=== PATIENT | male | born 1950 | race Caucasian/White ===

== ENCOUNTER → 2017-06-15 | Outpatient (CLI) | payer BC ==
[~2017-06-15] MED LIST: ASPI81CH; Hydrochloroth12.5 MG PO
== END ==
LOC: LAB SHORT 10:13 → PLD 10:13
DX: C44.529 Squamous cell carcinoma of skin of other part of trunk (principal)
CPT/HCPCS: 88305

== ENCOUNTER → 2017-10-27 | Outpatient (CLI) | payer BC | END | disposition home or self-care (01) | LOC: LAB SHORT 08:24 → PLD 08:24 | DX: C44.329 Squamous cell carcinoma of skin of other parts of face (principal) | CPT/HCPCS: 88305 ==

== ENCOUNTER → 2018-03-31 | Outpatient (CLI) | payer BC | LOC: LAB SHORT 10:26 → PLD 10:26 | DX: C44.222 Squamous cell carcinoma of skin of right ear and external auricular canal (principal); L82.1 Other seborrheic keratosis; L57.0 Actinic keratosis | CPT/HCPCS: 88305 ==

== ENCOUNTER → 2018-04-19 | Outpatient (CLI) | payer BC | END | disposition home or self-care (01) | LOC: PLD 07:49 → LAB SHORT 07:49 | DX: D04.21 Carcinoma in situ of skin of right ear and external auricular canal (principal); L57.0 Actinic keratosis | CPT/HCPCS: 88305 ==

== ENCOUNTER → 2018-07-28 | Outpatient (CLI) | payer BC | END | disposition home or self-care (01) | LOC: PLD 08:23 → LAB SHORT 08:23 | DX: L57.0 Actinic keratosis (principal) | CPT/HCPCS: 88305 ==

== ENCOUNTER → 2018-10-12 | Outpatient (CLI) | payer BC | END | disposition home or self-care (01) | LOC: PLD 11:15 → LAB SHORT 11:15 | DX: D48.5 Neoplasm of uncertain behavior of skin (principal) | CPT/HCPCS: 88305 ==

== ENCOUNTER → 2019-04-19 | Outpatient (CLI) | payer BC | END | disposition home or self-care (01) | LOC: LAB SHORT 15:33 → PLD 15:33 | DX: D22.5 Melanocytic nevi of trunk (principal) | CPT/HCPCS: 88305 ==

== ENCOUNTER 2020-01-28 16:06 | Emergency (ER) | payer BC ==
[~2020-01-28] VITALS: Ht 172.7 cm; Wt 79.4 kg
[2020-01-28 16:41] LABS: BASOPHILS ABSOLUTE AUTO 0.01 K/mm3 (0.00-0.23); BASOPHILS PERCENT AUTO 0 % (0-2); EOSINOPHILS ABSOLUTE AUTO 0.01 K/mm3 (0.00-0.68); EOSINOPHILS PERCENT AUTO 0 % (0-6); Hematocrit 45.6 % (37.0-53.0); Hemoglobin 16.4 g/dL (13.5-17.5); IMMATURE GRAN ABSOLUTE AUTO 0.01 K/mm3 (0.00-0.10); IMMATURE GRAN PERCENT AUTO 0 % (0-1); LYMPHOCYTES ABSOLUTE AUTO 1.03 K/mm3 (0.84-5.20); LYMPHOCYTES PERCENT AUTO 23 % (21-46); MONOCYTES ABSOLUTE AUTO 0.41 K/mm3 (0.16-1.47); MONOCYTES PERCENT AUTO 9 % (4-13); Mean Corpuscular HGB 32.2 pg (26.0-34.0); Mean Corpuscular Volume 89 fL (80-100); NEUTROPHILS PERCENT AUTO 68 % (41-73); Platelet Count 179 K/mm3 (150-400); RDW Coefficient Variation 11.9 % (11.7-14.2); RDW Standard Deviation 39.3 fL (35.1-46.3); White Blood Cell Count 4.57 K/mm3 (4.00-11.30)
[2020-01-28 16:49] LABS: Source, Urine Clean Catch
[2020-01-28 16:53] LABS: Appearance, Urine Clear (Clear); Bilirubin, Urine Neg (Neg); Blood, Urine 1+ (Neg); Color, Urine Yellow (P-Yellow); Glucose Qualitative, Urine Neg (Neg); Ketones, Urine 2+ (Neg); Leukocyte Esterase, Urine Neg (Neg); Nitrite, Urine Neg (Neg); Protein, Urine 2+ (Neg); Urobilinogen, Urine NORM (Normal)
[2020-01-28 16:58] LABS: Alanine Aminotransfer (ALT/SGP 26 U/L (12-78); Albumin, Blood 3.9 g/dL (3.4-5.0); Albumin/Globulin Ratio 0.9 (0.8-1.8); Alk Phos 64 U/L (50-136); Anion Gap 7 mmol/L (6-16); Aspartate Aminotrans (AST/SGOT 34 U/L (12-37); Bilirubin, Total 0.6 mg/dL (0.1-1.0); Blood Urea Nitrogen 16 mg/dL (8-24); Bun/Creatinine Ratio 15.2 (12.0-20.0); CO2, Blood 33 mmol/L (21-32); Calcium, Blood 8.5 mg/dL (8.5-10.1); Chloride, Blood 85 mmol/L (98-108); Creatinine, Blood 1.05 mg/dL (0.60-1.20); Globulin, Blood 4.4 g/dL (2.2-4.0); Glomerular Filtration Rate >60 (60-); Glucose, Blood 105 mg/dL (70-99); Potassium, Blood 3.1 mmol/L (3.5-5.5); Sodium, Blood 125 mmol/L (136-145); Total Protein, Blood 8.3 g/dL (6.4-8.2); Troponin I <0.015 ng/mL (0.000-0.040)
[2020-01-28 17:07] LABS: Bacteria Rare /hpf; Hyaline Casts Rare /lpf (0-2); Red Blood Cells, Urine 0-2 /hpf (0-2); Squamous Epithelial Cells Not Seen /hpf (Few); White Blood Cells, Urine 0-2 /hpf (0-5)
[2020-01-28] MEDS ORDERED: NAPR220 PO (19:15)
[2020-01-28] MEDS ORDERED: FISH OIL 1,2001 EAC7 PO (19:15)
== END 2020-01-28 22:16 | disposition home or self-care (01) ==
LOC: ER 16:06
PROVIDERS: Physician Assistant
DX: E86.0 Dehydration (principal); E87.1 Hypo-osmolality and hyponatremia; R19.7 Diarrhea, unspecified; Z79.899 Other long term (current) drug therapy
CPT/HCPCS: 36415; 71045; 80053; 81001; 83605; 84484; 85025; 93005; 93010; 96360; 99284-25; A9270; J7030

== ENCOUNTER → 2020-10-30 | Outpatient (CLI) | payer BC ==
[~2020-10-30] MED LIST changes: +FISH OIL 1,2001 EAC7 PO; +NAPR220 PO
== END | disposition home or self-care (01) ==
LOC: LAB 12:15 → LAB SHORT 12:15
DX: L57.0 Actinic keratosis (principal); D04.39 Carcinoma in situ of skin of other parts of face
CPT/HCPCS: 88305

== ENCOUNTER 2021-11-08 08:28 | Day surgery (SDC) | payer BC ==
[~2021-11-08] VITALS: Ht 172.7 cm; Wt 82.9 kg
[2021-11-08] MEDS ORDERED: B-12500 MC2 (09:06)
[2021-11-08] MEDS ORDERED: Aspir 8181 MG (09:06)
[2021-11-08] MEDS ORDERED: ATOR20 (09:06)
[2021-11-08] MEDS ORDERED: ERGO50000 (09:06)
[2021-11-08] MEDS ORDERED: LEVSOD25 (09:07)
[2021-11-08] MEDS ORDERED: LOSA25 (09:07)
[2021-11-08] MEDS ORDERED: ZINC220 (09:07)
== END 2021-11-08 10:30 | disposition home or self-care (01) ==
LOC: ORSCSDS 08:28
PROVIDERS: Surgery
PROC: 0DBK8ZX Excision of Ascending Colon, Via Natural or Artificial Opening Endoscopic, Diagnostic (ICD-10-PCS; principal; 2021-11-08 09:45)
DX: Z12.11 Encounter for screening for malignant neoplasm of colon (principal); Z86.010 Personal history of colon polyps; D12.2 Benign neoplasm of ascending colon; Z86.19 Personal history of other infectious and parasitic diseases; I10 Essential (primary) hypertension; E78.5 Hyperlipidemia, unspecified; Z86.16 Personal history of COVID-19; Z79.899 Other long term (current) drug therapy
CPT/HCPCS: 88305; J2704; J7120

== ENCOUNTER → 2022-04-29 | Outpatient (CLI) | payer BC ==
[~2022-04-29] MED LIST changes: +ATOR20; +Aspir 8181 MG; +B-12500 MC2; +ERGO50000; +LEVSOD25; +LOSA25; +ZINC220
== END ==
LOC: LAB SHORT 12:04 → PLD 12:04
DX: L57.0 Actinic keratosis (principal); L28.0 Lichen simplex chronicus
CPT/HCPCS: 88305

== ENCOUNTER → 2022-10-27 | Outpatient (CLI) | payer BC | END | disposition home or self-care (01) | LOC: LAB SHORT 12:29 → PLD 12:29 | DX: C44.111 Basal cell carcinoma of skin of unspecified eyelid, including canthus (principal) | CPT/HCPCS: 88305 ==

== ENCOUNTER → 2024-03-24 | Outpatient (CLI) | payer BC | LOC: LAB SHORT 07:13 → LAB 07:13 | DX: R59.0 Localized enlarged lymph nodes (principal) | CPT/HCPCS: 88173 ==

== ENCOUNTER → 2024-03-29 | Outpatient (CLI) | payer BC ==
[~2024-03-29] MED LIST changes: +FELODIPINE ER5 M2 PO; +LEVSOD25 PO
== END ==
LOC: LAB 07:50 → PLD 07:50 → LAB SHORT 07:50
DX: R59.0 Localized enlarged lymph nodes (principal)
CPT/HCPCS: 88184; 88185; 88305; 88323; 88341; 88342

== ENCOUNTER → 2024-04-12 | Outpatient (CLI) | payer BC | END | disposition home or self-care (01) | LOC: LAB SHORT 09:07 → LAB 09:07 | DX: C77.0 Secondary and unspecified malignant neoplasm of lymph nodes of head, face and neck (principal); C80.1 Malignant (primary) neoplasm, unspecified | CPT/HCPCS: 88184; 88185; 88305; 88323; 88341; 88342 ==

== ENCOUNTER 2024-04-22 06:14 | Day surgery (SDC) | payer BC ==
[~2024-04-22] VITALS: Ht 172.7 cm; Wt 82.6 kg
[~2024-04-22 06:14] MED LIST changes: -ATOR20; +ATOR20 PO; -FELODIPINE ER5 M2 PO; -LEVSOD25 PO
[2024-04-22] MEDS ORDERED: LEVSOD25 PO (06:39)
[2024-04-22] MEDS ORDERED: FELODIPINE ER5 M2 PO (06:41)
[2024-04-22] MEDS ORDERED: Lactated Ringer's 1,000 ML IV ONE ×2 (06:53→07:01)
[2024-04-22] MEDS ORDERED: FentaNYL Citrate 50 MCG/ML 2 ML Injection ONE (06:54)
[2024-04-22] MEDS ORDERED: Midazolam HCl 1MG / ML 2ML Vial ONE (06:54)
[2024-04-22] MEDS ORDERED: propofoL 20 ML IV ONE (06:54)
[2024-04-22] MEDS ORDERED: EPINEPhrine HCl 1 MG/ML 1ML Amp ONE (06:57)
[2024-04-22] MEDS ORDERED: Ondansetron HCl 2 MG / ML 2ML Vial ONE (07:41)
[2024-04-22] MEDS ORDERED: Dexamethasone Sod Phos 10 MG/ML 1ML VIAL ONE (07:41)
[2024-04-22] MEDS ORDERED: Phenylephrine HCl 100 MCG/ML-NS 10MLSYR (1MG/10ML) ONE (07:41)
[2024-04-22] MEDS ORDERED: Glycopyrrolate 0.2 MG/ML 5ML VIAL ONE (07:57)
[2024-04-22] MEDS ORDERED: ePHEDrine Sulfate 50 MG/ML 1ML Injection ONE (08:14)
--- NOTE | 2024-04-22 08:49 | NUR ---
04/22/24 0849 Maricruz Reno PT AWAKE UPON ARRIVAL TO PACU. DR GREEN AT BEDSIDE, LABETALOL GIVEN VIA IVP BY DR GREEN AT 0842.
[2024-04-22 09:08] VITALS: BP 133/95
--- NOTE | 2024-04-22 09:09 | NUR ---
04/22/24 0909 Arnold Oliva PT STATES PAIN TO NECK AT 2/10 WHICH HE DESCRIBES TOLERABLE.
[2024-04-22] MEDS ORDERED: OxyCODONE HCL 5 MG TAB ONE (09:22)
== END 2024-04-22 09:48 | disposition home or self-care (01) ==
LOC: ORSCSDS 06:14
PROVIDERS: Otolaryngology
PROC: 07B10ZX Excision of Right Neck Lymphatic, Open Approach, Diagnostic (ICD-10-PCS; principal; 2024-04-22 07:30)
DX: C83.31 Diffuse large B-cell lymphoma, lymph nodes of head, face, and neck (principal); I10 Essential (primary) hypertension; G47.33 Obstructive sleep apnea (adult) (pediatric); F17.210 Nicotine dependence, cigarettes, uncomplicated; E03.9 Hypothyroidism, unspecified; E78.5 Hyperlipidemia, unspecified; Z79.899 Other long term (current) drug therapy; Z79.82 Long term (current) use of aspirin
CPT/HCPCS: 87102; 87116; 88184; 88185; 88305; A9270; J0171; J1100; J2250; J2371; J2405; J2704; J3010; J7120

== ENCOUNTER 2024-05-09 06:07 | Day surgery (SDC) | payer BC ==
[2024-05-09] VITALS (10 sets, daily range): BP systolic 84–125; BP diastolic 66–88
[~2024-05-09] VITALS: Ht 172.7 cm; Wt 81.6 kg
[~2024-05-09 06:07] MED LIST changes: +FELODIPINE ER5 M2 PO; +LEVSOD25 PO
[2024-05-09] MEDS ORDERED: Lactated Ringer's 1,000 ML IV SCH (06:25)
[2024-05-09] MEDS ORDERED: propofoL 60 ML IV ONE (07:06)
[2024-05-09] MEDS ORDERED: Lidocaine HCl 1% 30 ML SDV ONE (07:12)
[2024-05-09] MEDS ORDERED: Bupivacaine 0.5% HCl 5 MG/ML 30MLVIAL ONE (07:12)
[2024-05-09] MEDS ORDERED: CeFAZolin Sodium 2,000 MG in NS 100 ML IV SCH (07:15)
--- NOTE | 2024-05-09 07:32 | NUR ---
History, Chart, Medications and Allergies reviewed before start of procedure. Lungs clear T/O to Auscultation. Patient confirms NPO status and agrees with scheduled surgery. Patient reports completing Chlorhexadine shower X2 prior to admission to hospital. Pre-Op teaching done. Pt verbalizes understanding.
[2024-05-09] MEDS ORDERED: CeFAZolin Sodium 1000 mg Vial ONE (07:34)
[2024-05-09] MEDS ORDERED: propofoL 20 ML IV ONE (07:41)
[2024-05-09] MEDS ORDERED: HYDROcodone 5-APAP 325 TAB PO PRN (08:25)
--- NOTE | 2024-05-09 09:25 | NUR ---
Patient up to Ambulate independently. Gait steady. Discharge instructions reviewed with patient. Patient verbalizes understanding. Copy given to patient to take home. Dressing to procedure site clean, dry, intact with no visible drainage, swelling, erythema or bruising noted. Patient States Post-Procedure ride home has been arranged. Discharged via wheelchair to private car for ride home.
== END 2024-05-09 09:25 | disposition home or self-care (01) ==
LOC: ORSCMMR 06:07 → ORD 07:30 → ORSCMMR 07:30
PROVIDERS: Surgery
PROC: 05HM33Z Insertion of Infusion Device into Right Internal Jugular Vein, Percutaneous Approach (ICD-10-PCS; principal; 2024-05-09 07:30)
PROC: 0JH63WZ Insertion of Totally Implantable Vascular Access Device into Chest Subcutaneous Tissue and Fascia, Percutaneous Approach (ICD-10-PCS; principal; 2024-05-09 07:30)
PROC: B543ZZA Ultrasonography of Right Jugular Veins, Guidance (ICD-10-PCS; principal; 2024-05-09 07:30)
DX: C82.11 Follicular lymphoma grade II, lymph nodes of head, face, and neck (principal); I10 Essential (primary) hypertension; G47.33 Obstructive sleep apnea (adult) (pediatric); Z86.16 Personal history of COVID-19; E78.5 Hyperlipidemia, unspecified; Z79.899 Other long term (current) drug therapy; Z79.82 Long term (current) use of aspirin; Z87.891 Personal history of nicotine dependence; Z85.820 Personal history of malignant melanoma of skin
CPT/HCPCS: 77001; A9270; C1788; J0690; J1642; J2704; J7120